=== PATIENT | male | born 1990 | race Two or more races ===

== ENCOUNTER 2020-11-07 23:48 | Emergency (ER) | payer SELFPAY ==
[~2020-11-07] VITALS: Ht 172.7 cm; Wt 86.4 kg
[2020-11-07 23:52] VITALS: BP 162/94
== END 2020-11-08 00:08 ==
LOC: ER 23:49
DX: Z02.89 Encounter for other administrative examinations (principal); F10.129 Alcohol abuse with intoxication, unspecified; V49.88XA Car occupant (driver) (passenger) injured in other specified transport accidents, initial encounter; Y93.89 Activity, other specified; Y92.481 Parking lot as the place of occurrence of the external cause; Y99.9 Unspecified external cause status; Y90.9 Presence of alcohol in blood, level not specified
CPT/HCPCS: 99283